=== PATIENT | female | born 1935 | race Caucasian/White ===

== ENCOUNTER 2016-11-04 17:02 | Emergency (ER) | payer OTHER ==
--- NOTE | 2016-11-04 17:13 | PROVIDER DOCUMENTATION ---
HPI-General Adult - General Source: EMS, [facility] records Unable to obtain history due to:: altered - History of Present Illness -Gen Adult Nature of Presenting Problems: 81 yo F was brought to ED by EMS from [facility] with cc of altered level of consciousness x 4 days. Pt has recent hx pelvic fx and has increased pain medication. EMS reports pt is able to shake head for "yes" and "no" and that she can squeeze hands with equal strength. Upon arrival to ED, pt is barely responsive but continues with level of responsiveness reported by EMS. Shortly after arrival, ED staff removed pt's pain patch from R upper back. Location of Pain/Injury: reports: none Severity: reports: moderate, severe Onset/Duration: reports: gradual, 4 days ago Timing: reports: still present Context/Activities at Onset: reports: recent trauma history (increase in pain meds after peliv fx) Modifying Factors: improves with: nothing Associated Symptoms: reports: other (Pt is barely conscious) Similar Symptoms Previously?: No Recently seen or treated by another doctor?: Yes ([facility]) - Diabetes Related Context Context: reports: change in mental status <Mercedez Cowart - Last Filed: 11/04/16 17:19> <Quintin Ramirez - Last Filed: 11/04/16 20:17> - General Chief Complaint: Altered Mental Status Stated Complaint: AMS Time Seen by Provider: 11/04/16 17:07 Allergies/Adverse Reactions: Patient Allergies Allergy/AdvReac Type Severity Reaction Status Date / Time Latex, Natural Rubber Allergy ANAPHYLAXIS Verified 11/04/16 17:09 morphine Allergy SHORTNESS Verified 11/04/16 17:09 OF BREATH codeine AdvReac Unknown Verified 11/04/16 17:09 hydrocodone AdvReac Unknown Verified 11/04/16 17:09 Home Medications: Aspirin 1 tab PO DAILY 11/15/15 Ezetimibe [Zetia] 1 tab PO DAILY 11/15/15 Pilocarpine HCl 2 tab PO TID@0900,1500,2100 11/15/15 Acetaminophen 500 mg PO Q6H PRN PRN 10/16/16 Carvedilol 6.25 mg PO DAILY 10/16/16 Fluorouracil [Efudex] 25 gm TP BID 10/16/16 Meclizine [Antivert] 25 mg PO TID PRN 10/16/16 Review of Systems - Adult - REVIEW OF SYSTEMS - ADULT ROS:: unobtainable per condition <Mercedez Cowart - Last Filed: 11/04/16 17:19> Past History - Adult - PAST MEDICAL HISTORY-ADULT Review of Records: reports: Old Records Reviewed, Nursing Assessment Review, Medications Reviewed Cardiovascular: reports: HTN, hyperlipidemia - PRIOR SURGERIES/PROCEDURES Surgical/Procedure History: reports: hysterectomy, joint replacement (total hip) - IMMUNIZATION STATUS Childhood Immunizations: See Nurse Assessment Flu Vaccine: See Nurse Assessment <Mercedez Cowart - Last Filed: 11/04/16 17:19> Physical Exam-General - PHYSICAL EXAM-ADULT Initial Vital Signs Reviewed: Yes - CONSTITUTIONAL General Appearance: negative: alert - EYES Eyes: PERRL/EOMI - HEAD, EARS, NOSE, MOUTH & THROAT HENMT: normocephalic/atraumatic, moist mucous membranes - NECK Neck: non-tender - RESPIRATORY Respiratory: no respiratory distress, no accessory muscle use - CARDIOVASCULAR Cardiovascular: normal peripheral pulses, regular rate, rhythm - GASTROINTESTINAL (ABDOMEN) Abdominal Exam: non tender, soft - LYMPHATIC Lymphatic: no adenopathy - MUSCULOSKELETAL Back Exam: normal inspection, no vertebral tenderness Extremity: other (recent pelvic fx causing pain on movement) - SKIN Integumentary: normal color, normal turgor - NEUROLOGIC Neurologic: other (difficult to rouse). negative: facial droop, focal weakness , motor weakness, sensory deficit - PSYCHIATRIC Psych/Mental Status: other (unable to obtain due to altered LOC) <Mercedez Cowart - Last Filed: 11/04/16 17:19> Progress - PLAN OF CARE/RESULTS Progress/Plan/Lab Results: Laboratory Tests 11/04/16 11/04/16 11/04/16 17:06 17:17 17:17 WBC 7.21 RBC 4.57 Hgb 13.4 Hct 40.5 MCV 88.6 MCH 29.3 MCHC 33.1 RDW Std Deviation 13.8 Plt Count 395 MPV 8.8 Immature Gran % (Auto) 1.1 H Neut % (Auto) 56.9 Lymph % (Auto) 30.0 [place] % (Auto) 9.6 H Eos % (Auto) 2.1 Baso % (Auto) 0.3 Immature Gran # (Auto) 0.08 H Neut # (Auto) 4.11 Lymph # (Auto) 2.16 [place] # (Auto) 0.69 H Eos # (Auto) 0.15 Baso # (Auto) 0.02 Specimen Type ARTERIAL Sample Site R RADIAL pH 7.48 H pCO2 32 L pO2 77 HCO3 25.6 Base Excess 1.0 Oxyhemoglobin 93.9 L ABG O2 Sat (Calculated) 18.1 ABG O2 Saturation 97.7 ABG Carboxyhemoglobin 2.10 ABG Methemoglobin 1.8 H Manan Test YES A-a O2 Difference 33.0 Total Hemoglobin 13.7 Lactate 0.60 Blood Gas Modality ROOM AIR FiO2 % 21.0 Sodium 135 L Potassium 4.0 Chloride 101 Carbon Dioxide 25 Anion Gap 9 BUN 17 Creatinine 0.6 Estimated GFR/1.73 m2 > 60 BUN/Creatinine Ratio 28 Glucose 125 H Calculated Osmolality 273 Calcium 8.5 L Total Bilirubin 0.40 AST 31 H ALT 32 Alkaline Phosphatase 354 H Total Protein 7.6 Albumin 3.7 Globulin 4.0 Albumin/Globulin Ratio 1.0 Urine Opiates Screen Ur Oxycodone Screen Urine Methadone Screen Ur Barbituates Screen Ur Tricyclics Screen Ur Phencyclidine Scrn Ur Amphetamines Screen U Methamphetamines Scrn Urine MDMA Screen U Benzodiazepines Scrn Urine Cocaine Screen U Cannabinoids Screen 11/04/16 17:18 WBC RBC Hgb Hct MCV MCH MCHC RDW Std Deviation Plt Count MPV Immature Gran % (Auto) Neut % (Auto) Lymph % (Auto) [place] % (Auto) Eos % (Auto) Baso % (Auto) Immature Gran # (Auto) Neut # (Auto) Lymph # (Auto) [place] # (Auto) Eos # (Auto) Baso # (Auto) Specimen Type Sample Site pH pCO2 pO2 HCO3 Base Excess Oxyhemoglobin ABG O2 Sat (Calculated) ABG O2 Saturation ABG Carboxyhemoglobin ABG Methemoglobin Manan Test A-a O2 Difference Total Hemoglobin Lactate Blood Gas Modality FiO2 % Sodium Potassium Chloride Carbon Dioxide Anion Gap BUN Creatinine Estimated GFR/1.73 m2 BUN/Creatinine Ratio Glucose Calculated Osmolality Calcium Total Bilirubin AST ALT Alkaline Phosphatase Total Protein Albumin Globulin Albumin/Globulin Ratio Urine Opiates Screen NONE DETECTED Ur Oxycodone Screen NONE DETECTED Urine Methadone Screen NONE DETECTED Ur Barbituates Screen NONE DETECTED Ur Tricyclics Screen NONE DETECTED Ur Phencyclidine Scrn NONE DETECTED Ur Amphetamines Screen NONE DETECTED U Methamphetamines Scrn NONE DETECTED Urine MDMA Screen NONE DETECTED U Benzodiazepines Scrn PRESUMPTIVE POSITIVE A Urine Cocaine Screen NONE DETECTED U Cannabinoids Screen NONE DETECTED Orders Category Date Time Status CHEST-PORTABLE [RAD] Stat Exams 11/04/16 17:07 Taken ABG [RESP] Routine Lab 11/04/16 17:06 Completed CBC WITH ELECTRONIC DIFF [HEME] Stat Lab 11/04/16 17:17 Completed COMPREHENSIVE METABOLIC PANEL [CHEM] Stat Lab 11/04/16 17:17 Completed UA [UA NIMS W/REFLEX CULT PL] [URINALYSIS] Stat Lab 11/04/16 17:34 Received URINE DRUG SCREEN PL Stat Lab 11/04/16 17:18 Completed Vital Signs Temp Pulse Resp BP Pulse Ox 11/04/16 18:14 72 18 115/78 98 11/04/16 17:45 81 18 115/70 99 11/04/16 17:04 97.5 F L 89 16 107/67 98 Latex, Natural Rubber Allergy (Verified 11/04/16 17:09) ANAPHYLAXIS morphine Allergy (Verified 11/04/16 17:09) SHORTNESS OF BREATH codeine Adverse Reaction (Verified 11/04/16 17:09) Unknown hydrocodone Adverse Reaction (Verified 11/04/16 17:09) Unknown Aspirin 1 tab PO DAILY 11/15/15 Ezetimibe [Zetia] 1 tab PO DAILY 11/15/15 Pilocarpine HCl 2 tab PO TID@0900,1500,2100 11/15/15 Acetaminophen 500 mg PO Q6H PRN PRN 10/16/16 Carvedilol 6.25 mg PO DAILY 10/16/16 Fluorouracil [Efudex] 25 gm TP BID 10/16/16 Meclizine [Antivert] 25 mg PO TID PRN 10/16/16 Hydrocodone/APAP 7.5 mg/325 mg [Topmost-7.5] 1 - 2 each PO Q4H PRN PRN #45 tablet 10/18/16 Lactulose 30 ml PO DAILY PRN PRN #0 udc 10/18/16 Tramadol [Ultram] 50 mg PO Q6H PRN PRN #30 tablet 10/18/16 Laboratory 11/04/16 11/04/16 11/04/16 17:18 17:17 17:17 WBC 7.21 RBC 4.57 Hgb 13.4 Hct 40.5 MCV 88.6 MCH 29.3 MCHC 33.1 RDW Std Deviation 13.8 Plt Count 395 MPV 8.8 Immature Gran % (Auto) 1.1 H Neut % (Auto) 56.9 Lymph % (Auto) 30.0 [place] % (Auto) 9.6 H Eos % (Auto) 2.1 Baso % (Auto) 0.3 Immature Gran # (Auto) 0.08 H Neut # (Auto) 4.11 Lymph # (Auto) 2.16 [place] # (Auto) 0.69 H Eos # (Auto) 0.15 Baso # (Auto) 0.02 Specimen Type Sample Site pH pCO2 pO2 HCO3 Base Excess Oxyhemoglobin ABG O2 Sat (Calculated) ABG O2 Saturation ABG Carboxyhemoglobin ABG Methemoglobin Manan Test A-a O2 Difference Total Hemoglobin Lactate Blood Gas Modality FiO2 % Sodium 135 L Potassium 4.0 Chloride 101 Carbon Dioxide 25 Anion Gap 9 BUN 17 Creatinine 0.6 Estimated GFR/1.73 m2 > 60 BUN/Creatinine Ratio 28 Glucose 125 H Calculated Osmolality 273 Calcium 8.5 L Total Bilirubin 0.40 AST 31 H ALT 32 Alkaline Phosphatase 354 H Total Protein 7.6 Albumin 3.7 Globulin 4.0 Albumin/Globulin Ratio 1.0 Urine Opiates Screen NONE DETECTED Ur Oxycodone Screen NONE DETECTED Urine Methadone Screen NONE DETECTED Ur Barbituates Screen NONE DETECTED Ur Tricyclics Screen NONE DETECTED Ur Phencyclidine Scrn NONE DETECTED Ur Amphetamines Screen NONE DETECTED U Methamphetamines Scrn NONE DETECTED Urine MDMA Screen NONE DETECTED U Benzodiazepines Scrn PRESUMPTIVE POSITIVE A Urine Cocaine Screen NONE DETECTED U Cannabinoids Screen NONE DETECTED 11/04/16 17:06 WBC RBC Hgb Hct MCV MCH MCHC RDW Std Deviation Plt Count MPV Immature Gran % (Auto) Neut % (Auto) Lymph % (Auto) [place] % (Auto) Eos % (Auto) Baso % (Auto) Immature Gran # (Auto) Neut # (Auto) Lymph # (Auto) [place] # (Auto) Eos # (Auto) Baso # (Auto) Specimen Type ARTERIAL Sample Site R RADIAL pH 7.48 H pCO2 32 L pO2 77 HCO3 25.6 Base Excess 1.0 Oxyhemoglobin 93.9 L ABG O2 Sat (Calculated) 18.1 ABG O2 Saturation 97.7 ABG Carboxyhemoglobin 2.10 ABG Methemoglobin 1.8 H Manan Test YES A-a O2 Difference 33.0 Total Hemoglobin 13.7 Lactate 0.60 Blood Gas Modality ROOM AIR FiO2 % 21.0 Sodium Potassium Chloride Carbon Dioxide Anion Gap BUN Creatinine Estimated GFR/1.73 m2 BUN/Creatinine Ratio Glucose Calculated Osmolality Calcium Total Bilirubin AST ALT Alkaline Phosphatase Total Protein Albumin Globulin Albumin/Globulin Ratio Urine Opiates Screen Ur Oxycodone Screen Urine Methadone Screen Ur Barbituates Screen Ur Tricyclics Screen Ur Phencyclidine Scrn Ur Amphetamines Screen U Methamphetamines Scrn Urine MDMA Screen U Benzodiazepines Scrn Urine Cocaine Screen U Cannabinoids Screen - XRAY 1 XRAY Study: Chest Impression: Normal XRAY Interpretation: normal, per radiology <Quintin Ramirez - Last Filed: 11/04/16 20:17> Departure <Mercedez Cowart - Last Filed: 11/04/16 17:19> - Departure Time of Disposition Order: 20:16 Certified Medical Emergency: Emergent <Quintin Ramirez - Last Filed: 11/04/16 20:17> - Departure DIAGNOSIS: Dementia Qualifiers: Dementia type: unspecified type Dementia behavioral disturbance: without behavioral disturbance Qualified Code(s): F03.90 - Unspecified dementia without behavioral disturbance Disposition: HOME 01 Condition: Good Additional Instructions: ED Follow Up Instructions: You have been treated by a care provider in the Emergency Department. These instructions are being provided to you so you can have an understanding of how to care for yourself upon discharge. Upon discharge from the Emergency Department, you are responsible for making arrangements for follow-up care by a physician of your choice. Take all prescribed medications as directed. Return to the Emergency Department immediately for any new or worsening symptoms. You may call the Physician Referral phone number at [phone] to obtain a list of Physicians who are taking new patients. Referrals: Solis Clemente MD [Primary Care Provider] - Attestation - Scribe Verification/Attestation Scribe:: Mercedez Cowart Acting as Scribe for:: Leonel Uriarte Scribe documention review:: This chart was documented by a scribe and accurately reflects the service the provider performed and the decisions made by the provider. - Physician/ Mid-level Attestation Patient care was provided by Mid-level provider ([employer] TECHNICIAN/PA):: No <Mercedez Cowart - Last Filed: 11/04/16 17:19> Physician Attestation
[2016-11-04 17:20] LABS: BLOOD TYPE ARTERIAL; DRAW SITE R RADIAL; METHB 1.8 % (0.0-1.5); O2(CT) 18.1 mL/dL (15.0-23.0); PCO2(98.6) 32 mmHg (35-45); PO2(98.6) 77 mmHg (60-100); SAMPLE BLOOD; SAO2 97.7 % (95.0-100.0); THB 13.7 g/dL (11.5-17.4); pH(98.6) 7.48 (7.35-7.45)
[2016-11-04 17:26] LABS: ALLEN TEST YES; MODALITY ROOM AIR
[2016-11-04 17:28] LABS: MANUAL DIFF NEEDED? NO
[2016-11-04 17:41] LABS: BASO% 0.3 % (0.0-0.8); EOS# 0.15 X1000 (0.0-0.7); EOS% 2.1 % (0.0-10.0); HEMATOCRIT 40.5 % (37.0-47.0); HEMOGLOBIN 13.4 g/dL (12.0-16.0); IMM GRAN# 0.08 X1000 (0.0-0.04); IMM GRAN% 1.1 % (0.0-0.5); LYMPH# 2.16 X1000 (1.2-3.4); MCH 29.3 PG (27-31); MCHC 33.1 g/dL (33-37); MCV 88.6 FL (81-99); MONO# 0.69 X1000 (0.11-0.59); MONO% 9.6 % (1.7-9.3); MPV 8.8 FL (7.4-10.4); NEUT% 56.9 % (42.2-75.2); PLT 395 X1000 (130-400); RBC 4.57 XMIL (4.2-5.4)
[2016-11-04 17:51] LABS: UR AMPHETAMINES QUAL NONE DETECTED (NONE DETECT); UR BARBITUATES QUAL NONE DETECTED (NONE DETECT); UR BENZODIAZEPIN QUAL PRESUMPTIVE POSITIVE (NONE DETECT); UR CANNABINOIDS QUAL NONE DETECTED (NONE DETECT); UR COCAINE QUAL NONE DETECTED (NONE DETECT); UR MDMA QUAL NONE DETECTED (NONE DETECT); UR METHADONE QUAL NONE DETECTED (NONE DETECT); UR METHAMPHETAMINE QUAL NONE DETECTED (NONE DETECT); UR OPIATES QUAL NONE DETECTED (NONE DETECT); UR OXYCODONE QUAL NONE DETECTED (NONE DETECT); UR PCP QUAL NONE DETECTED (NONE DETECT); UR TCA QUAL NONE DETECTED (NONE DETECT)
[2016-11-04 17:52] LABS: AGAP 9; ALBUMIN 3.7 g/dL (3.5-5.0); ALKALINE PHOSPHATASE 354 U/L (32-104); BUN 17 mg/dL (8-22); CALCIUM 8.5 mg/dL (8.8-10.2); CHLORIDE 101 mmol/L (98-107); COSMO 273; GOT 31 U/L (10-30); GPT 32 U/L (10-36); SODIUM 135 mmol/L (136-145); TCO2 25 mmol/L (25-35); TOTAL PROTEIN 7.6 g/dL (6.3-8.3)
[2016-11-04 19:19] LABS: BILIRUBIN URINE NEGATIVE (NEGATIVE); BLOOD URINE TRACE (NEGATIVE); CLARITY SL. CLOUDY (CLEAR); COLOR YELLOW; GLUCOSE URINE NEGATIVE (NEGATIVE); LEUKOCYTES URINE 1+ (NEGATIVE); NITRITE URINE NEGATIVE (NEGATIVE); PROTEIN URINE TRACE mg/dL (NEGATIVE); UROBILINOGEN URINE NORMAL
[2016-11-04 19:20] LABS: URINE CAST NONE SEEN /LPF; URINE CRYSTAL NONE SEEN /HPF; URINE CULTURE PL NEEDED? YES; URINE EPITHELIAL CELLS <10 /HPF (<10); URINE SOURCE CLEAN CATCH
[2016-11-04] MEDS ORDERED: HALDOL IV ONE ×2 (19:35→20:16)
[2016-11-04 20:48] VITALS: BP 120/69
--- NOTE | 2016-11-04 23:08 | Diag Imaging Result Document ---
PROCEDURE NAME: HEAD W/O CONTRAST - 11/04/2016 CT HEAD WITHOUT CONTRAST: COMPARISON: None available. FINDINGS: There is diffuse brain atrophy and there is patchy low attenuation in the periventricular and subcortical white matter suggesting moderate microangiopathy. There is no definite acute infarct given the limited sensitivity of CT versus MRI. There is no discrete intracranial mass, mass effect, or intracranial hemorrhage appreciated. Surrounding soft tissues and bony structures are grossly unremarkable. IMPRESSION: Chronic appearing changes as described but no definite acute intracranial pathology.
--- NOTE | 2016-11-04 23:21 | Diag Imaging Result Document ---
PROCEDURE NAME: CHEST-PORTABLE - 11/04/2016 SINGLE FRONTAL RADIOGRAPH OF THE CHEST: COMPARISON: 10/19/2016. FINDINGS: There is mild chronic-appearing interstitial thickening at the lung bases that is similar to the previous study. The lungs are grossly clear, otherwise. There is no definite pleural fluid collection. There are few calcified right hilar lymph nodes indicating prior granulomatous disease, stable. Cardiac silhouette and central vasculature are essentially unremarkable, otherwise. There are a few healed rib fractures on the right. IMPRESSION: Mild chronic-appearing interstitial thickening but no definite acute pathology.
== END 2016-11-04 21:03 ==
LOC: P.ED 17:02
DX: F03.90 Unspecified dementia, unspecified severity, without behavioral disturbance, psychotic disturbance, mood disturbance, and anxiety (principal); R41.82 Altered mental status, unspecified; I10 Essential (primary) hypertension; E78.5 Hyperlipidemia, unspecified; S32.9XXD Fracture of unspecified parts of lumbosacral spine and pelvis, subsequent encounter for fracture with routine healing; Z79.82 Long term (current) use of aspirin; Z79.899 Other long term (current) drug therapy; Z96.649 Presence of unspecified artificial hip joint
CPT/HCPCS: 70450; 71010; 80053; 81001; 82805; 85025; 87077; 87088; 87186; 96374; 96376; J1630